=== PATIENT | female | born 1975 ===

== ENCOUNTER 2024-05-16 10:41 | Outpatient (CLI) | payer OTHER | END 2024-05-16 10:42 | disposition home or self-care (01) | LOC: CSHCT 10:41 | PROVIDERS: ATTEND Family Medicine | DX: R10.31 Right lower quadrant pain (principal); K65.1 Peritoneal abscess; N13.30 Unspecified hydronephrosis; N20.0 Calculus of kidney; K80.20 Calculus of gallbladder without cholecystitis without obstruction | CPT/HCPCS: 74177 ==

== ENCOUNTER 2024-05-16 12:10 | Emergency (ER) | payer OTHER, SELFPAY ==
[2024-05-16 12:51] LABS: #Basophils 0.02 10x3/uL (0.0-0.2); #Eosinphils 0.01 10x3/uL (0.0-0.5); #Monocytes 1.07 10x3/uL (0.0-1.1); #Neutrophils 14.82 10x3/uL (1.5-8.4); %Basophils 0.1 % (0.0-2.0); %Eosinophils 0.1 % (0.0-6.0); %Lymphocytes 9.7 % (18.0-47.0); %Neutrophils 83.1 % (40.0-75.0); Hematocrit 26.1 % (34.9-44.5); Hemoglobin 8.2 g/dL (12.0-15.5); Mean Corpuscular HGB CONC 31.4 g/dL (32.0-36.0); Mean Corpuscular Hemoglobin 25.4 pg (27.0-33.0); Mean Corpuscular Volume 80.8 fL (81.6-98.3); Mean Platelet Volume 8.9 fL (7.4-10.4); Platelet Count 390 10x3/uL (150-450); RBC Distribution Width 14.9 % (11.5-14.5); Red Blood Cell (RBC) Count 3.23 10x6/uL (3.90-5.03); White Blood Cell (WBC) Count 17.8 10x3/uL (3.5-10.5)
[2024-05-16] MEDS ORDERED: Piperacillin/Tazobactam 4.5 GM VIAL ONE (12:51)
[2024-05-16] MEDS ORDERED: fentaNYL 50 mcg/mL 1 mL Vial ONE ×2 (12:51→15:31)
[2024-05-16 13:08] LABS: ALT (SGPT) 7 U/L (8-55); AST (SGOT) 9 U/L (5-34); Albumin 2.2 g/dL (3.5-5.0); Alkaline Phosphatase 65 U/L (40-110); Anion Gap 14 mmol/L (10-20); BUN (Urea Nitrogen) 14 mg/dL (7.0-18.7); Bilirubin, Total 0.3 mg/dL (0.2-1.2); Calc. Creatinine Clearance 0 mL/min (70-130); Calcium 8.5 mg/dL (7.8-10.44); Carbon Dioxide 20 mmol/L (22-29); Chloride 102 mmol/L (98-107); Estimated GFR 70; Globulin 5.2 g/dL (2.4-3.5); Glucose 116 mg/dL (70-105); Protein, Total 7.4 g/dL (6.0-8.3); Sodium 133 mmol/L (136-145)
[2024-05-16] MEDS ORDERED: NS 0.9% w/ 20 MEQ KCL 1,000 ML ONE (13:39)
[2024-05-16 14:26] LABS: Bilirubin Neg (Negative); Blood, Urine 250 (Negative); Clarity Cloudy (Clear); Glucose, Urine (Dipstick) Normal (Negative); Ketone, Urine Negative (Negative); Leukocyte 500 (Negative); Nitrite Negative (Negative); Protein, Urine (Dipstick) 100 mg/dl (Neg-Trace); Specific Gravity, Urine 1.005 (1.005-1.030)
[2024-05-16 15:54] LABS: Bacteria/HPF 2+ HPF (None Seen); CAUTI Indications for Culture Pelvic or flank pain; RBC/HPF 0-3 HPF (0-3); Squamous Epithelial 0-3 HPF (0-3)
[2024-05-16 15:55] LABS: Urine Culture Reflex No No
[2024-05-16] MEDS ORDERED: Acetaminophen 500 MG TAB ONE (16:37)
== END 2024-05-16 17:26 | disposition short-term general hospital (02) ==
LOC: CSHERS 12:10
DX: A41.9 Sepsis, unspecified organism (principal); K35.33 Acute appendicitis with perforation, localized peritonitis, and gangrene, with abscess; K68.12 Psoas muscle abscess; L02.211 Cutaneous abscess of abdominal wall; Z55.0 Illiteracy and low-level literacy
CPT/HCPCS: 36415; 80053; 81001; 83605; 85025; 87040; 96361; 96374; 96375; 96376; J2543; J3010; J3480